=== PATIENT | male | born 1995 | race Caucasian/White ===

== ENCOUNTER 2023-07-20 12:53 | Emergency (ER) | payer OTHER, SELFPAY ==
[2023-07-20 12:54] VITALS: BP 178/97; PULSE 128; RESP 16; TEMP 35.3; O2SAT 97; BMI 39.6
[2023-07-20 12:56] VITALS: BP 178/97; PULSE 128; RESP 16; TEMP 35.3; O2SAT 97
[2023-07-20 12:58] VITALS: BP 178/97; PULSE 128; RESP 16; TEMP 35.3; O2SAT 97
--- NOTE | 2023-07-20 13:39 | CT_ITS ---
STUDY: CT ABDOMEN AND PELVIS WITHOUT CONTRAST REASON FOR EXAM: Male, 28 years old. Left testicular pain since last night. RADIATION DOSAGE (If Supplied By Facility): CTDIvol = ( 24.08 ) mGy, DLP = ( 1860.64 ) mGycm TECHNIQUE: Transaxial images were obtained from the dome of the diaphragm to the symphysis pubis without oral contrast, and without intravenous contrast. Sagittal and coronal images were reconstructed. Individualized dose optimization techniques were used for this CT. COMPARISON: None. FINDINGS: The visualized lung bases are unremarkable. The visualized portions of the heart are within normal limits. There is decreased attenuation of the liver consistent with steatosis. Normal gallbladder and extrahepatic biliary system. Normal spleen. Normal pancreas. Normal bilateral adrenal glands. Normal right kidney. Mild degree of left hydronephrosis due to a 3 mm calculus at the left ureterovesical junction as it enters the urinary bladder. Normal visualized stomach. Normal small intestine. Normal colon. The appendix is visualized and appears normal. Normal abdominal aorta. Normal inferior vena cava. Normal retroperitoneum. Normal urinary bladder. Normal abdominal wall. Normal osseous structures. CT/Abdomen/Pelvis without Cont IMPRESSION: Mild degree of left hydronephrosis due to a recently passed ureteral calculus just distal to the left ureterovesical junction. Fatty infiltration of the liver. Electronically Signed: Vega Humphrey MD at 14:26 EDT ,
[2023-07-20] MEDS: Ketorolac 30 MG/ML Syringe IV (13:53)
[2023-07-20 13:59] LABS: Absolute Lymphocyte Count 1.63 X10^3/uL (0.83-4.51); Absolute Neutrophil Count 9.8 X10^3/uL (2.0-7.7); Basophil# 0.02 X10^3/uL; Basophil% 0.2 % (0-1); Eosinophil# 0.05 X10^3/uL; Eosinophils% 0.4 % (0-5); Hemoglobin 14.3 g/dL (13.0-16.5); Lymphocyte # 1.63 X10^3/ul (0.83-4.51); Lymphocyte % 12.9 % (19-41); Mean Corp Hgb Conc 31.8 g/dL (32-36); Mean Corpuscular Hgb 24.7 pg (27.0-32.0); Mean Corpuscular Volume 77.6 fL (80-94); Mean Platelet Vol. 9.7 fl (6.2-12.0); Monocyte# 1.13 X10^3/uL; Monocyte% 8.9 % (0-10); NRBC Flagged by Analyzer 0 % (0-5); Neutrophil # 9.75 X10^3/uL (2.7-7.7); Neutrophil % 77.2 % (47-70); Platelet Count 490 K/mm3 (150-450); RBC Distribution Width CV 13.9 % (11.6-14.6); RBC Distribution Width SD 38.5 fl (35.1-43.9); White Blood Count 12.6 K/mm3 (4.4-11.0)
[2023-07-20 14:11] LABS: Anion Gap 8 (5-15); BUN 13 mg/dL (7-18); BUN/Creat Ratio 11.6 RATIO (10-20); Calcium,Total 9.3 mg/dL (8.5-10.1); Chloride 108 mmol/L (98-107); Creatinine, Serum 1.12 mg/dL (0.70-1.30); EST Glomerular Filtration Rate 82 mL/min (>60); Est Glom Filt Rate - Afr Amer 100 mL/min (>60); Estimated Creatinine Clearance 141.16 ml/min; Glucose 151 mg/dL (74-106); Potassium 3.8 mmol/L (3.5-5.1); Sodium Level 141 mmol/L (136-145)
[2023-07-20 14:27] LABS: Bacteria 0 SEEN /hpf (None Seen); Mucous, Urine 0 SEEN /hpf (<or=2+); Squamous Epithelial Cells - UA 0 SEEN /hpf (0-5); White Blood Cells 0 SEEN /hpf (0-5)
[2023-07-20 14:28] LABS: Color, Urine Yellow (Yellow); Glucose, Dipstick Normal (Normal); Ketone-Dipstick Negative (Negative); Leukocyte Esterase-Dipstick Negative /ul (Negative); Nitrite-Dipstick Negative (Negative); Occult Blood-Urine 25 /ul (Negative); Protein-Dipstick 15 mg/dl (Negative); Urine Bilirubin Dipstick Negative (Negative); Urine Clarity Clear (Clear); Urine Urobilinogen Normal (Normal)
[2023-07-20 14:36] LABS: Red Blood Cells-Urine 0-5 SEEN /hpf (0-5)
[2023-07-20 14:54] VITALS: BP 169/109; PULSE 97; RESP 18; TEMP 36.8; O2SAT 98
--- NOTE | 2023-07-20 15:55 | EDS_ITS ---
HPI History of Present Illness Chief Complaint: Male Pain/Injury Informant: patient Narrative Narrative: 28-year-old male presenting to the emergency room with left testicular pain. Patient states that last evening he got up to urinate and after doing so began to have discomfort of the left testicle. Was rather uncomfortable and made him walk around. That did not seem to make it better or worse. Then she was able to get to sleep and when he awoke felt little bit better but then his pain/discomfort returned. He notes that it seems to wax and wane and has some occasional nausea. He has never experienced this before. No dysuria or drainage from the penis. No trauma. He notes a inguinal hernia surgery as a child. No hematuria. Patient with no known prostate issues. [facility] Medical History Testicle pain Home Medications NK 07/20/23 [History Last Taken Unknown] Allergy/AdvReac Type Severity Reaction Status Date / Time No Known Allergies Allergy Verified 07/20/23 12:56 Social History Smoking Status: Unknown if ever smoked ROS ROS ED Constitutional Constitutional ED: Denies chills, fever(s) or weight loss Eyes Eyes: Denies change in vision or diplopia ENT ENT ED: Denies ear pain, rhinorrhea or sore throat Cardiovascular Cardiovascular: Denies chest pain, orthopnea, palpitations or racing heartbeat Respiratory/Chest Respiratory/Chest: Denies cough, dyspnea or orthopnea Gastrointestinal Gastrointestinal: Reports nausea; Denies abdominal pain, diarrhea or vomiting Genitourinary Genitourinary ED: Reports other Details: Left testicular pain ; Denies dysuria, hematuria or urinary frequency Musculoskeletal Musculoskeletal: Denies arthralgias, back pain or myalgias Integumentary Denies abscess or rash Neurologic Neurologic: Denies headache(s) or weakness Psychiatric Psychiatric: Denies anxiety, depression, suicidal ideation or suicidal thoughts Endocrine Endocrinology: Denies polydipsia, polyphagia or polyuria Allergic/Immunologic Allergic/Immunologic ED: Denies mouth swelling, tongue swelling or urticaria EXAM Physical Exam Const Vital Signs: 07/20/23 12:54 07/20/23 12:56 07/20/23 12:58 Temperature 95.6 F L 95.6 F L 95.6 F L Temperature Source Temporal Temporal Temporal Pulse Rate 128 H 128 H 128 H Respiratory Rate 16 16 16 Blood Pressure 178/97 H 178/97 H 178/97 H Blood Pressure Mean 124 124 124 Pulse Ox 97 97 97 Oxygen Delivery Method Room Air Room Air Room Air 07/20/23 14:54 Temperature 98.2 F Temperature Source Pulse Rate 97 Respiratory Rate 18 Blood Pressure 169/109 H Blood Pressure Mean 129 Pulse Ox 98 Oxygen Delivery Method Positive well nourished and well developed General Appearance ED: well developed HEENT Reports normocephalic, head/scalp atraumatic and moist mucous membranes Eyes PERRL and EOMs intact bilaterally Neck no lymphadenopathy, supple and no JVD Resp normal respiratory effort and clear to auscultation bilaterally Cardio regular rate, regular rhythm and no murmurs GI normal to inspection, nondistended, normoactive bowel sounds and non-tender Palpation: soft Narrative: Testicular exam shows no significant tenderness of the testicle or the epididymis. Normal testicular lie. I do not palpate any masses. No hernia on Valsalva or palpation. No penile drainage. Cremasteric reflex intact bilaterally Back/Spine no CVA tenderness and normal ROM Extremity normal to inspection General Extremety ED: Negative for edema General Extremity: Negative for edema Neuro oriented x3 and CN's II-XII intact bilaterally Sensorium / Orientation: alert Motor Exam: strength 5/5 throughout Psych mental status grossly normal Mood & Affect: Negative for depressed or tearful Skin no rashes or lesions noted and no wounds MDM MDM MDM Narrative Medical decision making narrative: White count 12.6 with hemoglobin 14.3 platelet count of 490. Creatinine 1.[address] of the abdomen pelvis demonstrates some mild hydronephrosis of the left kidney. Hydroureter noted. There is a approximately 3-1/2 mm stone in the bladder suggestive that it recently passed. This most likely is a source of the patient's testicular pain. I talked him about obtaining a testicular ultrasound. Using shared decision making we will defer this at this time. His exam does not support torsion epididymitis or orchitis. He is comfortable returning if any concerns. History & Record Review Discussion w/independent historian: Patient and Family Lab Data Attestation: I reviewed the patient's lab results. Labs: Laboratory Results - last 24 hr 07/20/23 07/20/23 13:45 14:15 WBC 12.6 H RBC 5.80 Hgb 14.3 Hct 45.0 MCV 77.6 L MCH 24.7 L MCHC 31.8 L RDW Std Deviation 38.5 RDW Coeff of Grady 13.9 Plt Count 490 H MPV 9.7 Immature Gran % (Auto) 0.400 Neut % (Auto) 77.2 H Lymph % (Auto) 12.9 L Butler % (Auto) 8.9 Eos % (Auto) 0.4 Baso % (Auto) 0.2 Absolute Neuts (auto) 9.8 H Absolute Lymphs (auto) 1.63 Nucleated RBC % 0 Sodium 141 Potassium 3.8 Chloride 108 H Carbon Dioxide 25.0 Anion Gap 8 BUN 13 Creatinine 1.12 Estim Creat Clear Calc 141.16 Est GFR (MDRD) Af Amer 100 Est GFR (MDRD) Non-Af 82 BUN/Creatinine Ratio 11.6 Glucose 151 H Calcium 9.3 Urine Color Yellow Urine Clarity Clear Urine pH 6.0 Ur Specific [place] 1.020 Urine Protein 15 H Urine Glucose (UA) Normal Urine Ketones Negative Urine Occult Blood 25 H Urine Nitrite Negative Urine Bilirubin Negative Urine Urobilinogen Normal Ur Leukocyte Esterase Negative Urine RBC 0-5 SEEN Urine WBC 0 SEEN Ur Squamous Epith Cells 0 SEEN Urine Bacteria 0 SEEN Urine Mucus 0 SEEN Radiography Diagnostic Testing: Clinical Impression(s) from Imaging Studies Abdomen/Pelvis CT 07/20/23 13:39 IMPRESSION: Mild degree of left hydronephrosis due to a recently passed ureteral calculus just distal to the left ureterovesical junction. Fatty infiltration of the liver. Electronically Signed: Vega Humphrey MD at 14:26 EDT , Discharge Plan Triage Chief Complaint: Male Pain/Injury ED Provider: Daniel Lemos Dx/Rx/DC Orders Clinical Impression: Kidney stone, Left testicular pain Instructions: ED Kidney Stone, Passed Prescriptions: No Action NK Primary Care Provider: Care Physician,No Primary Referrals: Lele Swartz MD [Med Staff - Active Staff] - As Needed Care Physician,No Primary [Primary Care Provider] - Activity Restrictions/Additional Instructions: Please return to the emergency department if any concerns or pain is continuing. Disposition Disposition: Home, Self Care Discharge Date/Time: 07/20/23 14:59
== END 2023-07-20 14:59 | disposition home or self-care (01) ==
PROVIDERS: Emergency Provider Emergency Medicine; Visit Provider Emergency Medicine
DX: N50.812 Left testicular pain (principal); N13.30 Unspecified hydronephrosis
CPT/HCPCS: 74176; 80048; 81001; 85025; 96374; 99282; J7030; A4216

== ENCOUNTER 2024-05-22 08:22 | Emergency (ER) | payer BC, SELFPAY ==
[2024-05-22 08:22] VITALS: BP 151/100; PULSE 95; RESP 16; TEMP 35.7; O2SAT 98
--- NOTE | 2024-05-22 08:32 | ED.VIS.LOWEX ---
HPI History of Present Illness Chief Complaint: Lower Extremity Injury Detail of Chief Complaint: Injury to left foot Informant: patient Narrative Narrative: Patient presents to the emergency department with an injury to his left foot that occurred yesterday. Patient states that he was coming down the steps carrying something and he heard a pop in his left foot causing pain. He did not fall. He complains of swelling and pain with walking. He is able to bear some weight. [facility] Medical History Testicle pain Home Medications ?Medication ?Instructions ?Recorded ?Last Taken ?Type NK 07/20/23 Unknown History Allergy/AdvReac Type Severity Reaction Status Date / Time No Known Allergies Allergy Verified 07/20/23 12:56 Social History Smoking Status: Unknown if ever smoked ROS ROS ED Review of Systems ROS Unobtainable: other Constitutional Constitutional ED: Reports lethargy; Denies chills, fever(s), sweats or weight loss Eyes Eyes: Denies blurry vision, change in vision or diplopia ENT ENT ED: Denies rhinorrhea or sore throat Cardiovascular Cardiovascular: Denies chest pain, orthopnea or racing heartbeat Respiratory/Chest Respiratory/Chest: Denies cough, dyspnea, dyspnea on exertion, orthopnea or sputum Gastrointestinal Gastrointestinal: Denies abdominal pain, diarrhea, nausea or vomiting Genitourinary Genitourinary ED: Denies dysuria, hematuria or urinary frequency Musculoskeletal Musculoskeletal: Reports other Details: Left foot pain/injury ; Denies arthralgias, back pain, myalgias or neck pain Integumentary Denies abscess, Abrasions or rash Neurologic Neurologic: Denies headache(s) or weakness Psychiatric Psychiatric: Denies anxiety, depression or suicidal thoughts Endocrine Endocrinology: Denies polydipsia, polyphagia or polyuria Hematologic/Lymphatic Hematologic/Lymphatic: Denies easy bleeding, easy bruising or lymphadenopathy Allergic/Immunologic Allergic/Immunologic ED: Denies mouth swelling, tongue swelling or urticaria EXAM Physical Exam Const Vital Signs: 05/22/24 08:22 Temperature 96.3 F L Temperature Source Temporal Pulse Rate 95 Respiratory Rate 16 Blood Pressure 151/100 H Blood Pressure Mean 117 Pulse Ox 98 Oxygen Delivery Method Room Air Positive well nourished and well developed General Appearance ED: well developed and NAD HEENT Reports TM's clear and moist mucous membranes normocephalic and atraumatic; Negative for trauma or tenderness Tympanic Membrane ED: Yes TM's clear Eyes PERRL and EOMs intact bilaterally General Eye ED: Negative for pale conjunctiva or scleral icterus Neck no lymphadenopathy, supple and no JVD General: Negative for tenderness Chest Wall inspection of chest normal and palpation of chest normal Chest: Negative for tenderness Resp normal respiratory effort and clear to auscultation bilaterally Effort and Inspection: Negative for respiratory distress or pain with movement Auscultation: Negative for rhonchi, wheezes or diminished lung sounds Cardio regular rate, regular rhythm, S1 normal heart sound, S2 normal heart sound and no murmurs Peripheral Pulses: pulses 2+ throughout GI normal to inspection, nondistended, normoactive bowel sounds, soft to palpation, non-tender, non-distended and no masses Back/Spine no CVA tenderness and no thoracic nor lumbar tenderness Extremity Extremity Narrative: Left lower extremity-patient has mild diffuse tenderness over the dorsum of the left foot. Patient with tenderness palpation over the plantar aspect of the midfoot. Mild diffuse soft tissue swelling over the dorsum of the foot. No ecchymosis or bruising noted. No pain at the base of the fifth metatarsal. No significant tenderness over the medial or lateral malleolus. No pain at the proximal fibular head. Neurovascularly intact distally. General Extremety ED: Negative for edema General Extremity: Negative for edema Neuro oriented x3, CN's II-XII intact bilaterally, no sensory deficits noted and gait normal Sensorium / Orientation: awake, alert, oriented to person, oriented to place and oriented to time Motor Exam: strength 5/5 throughout and strength abnormal Psych mental status grossly normal Skin no rashes or lesions noted and no wounds MDM MDM MDM Narrative Medical decision making narrative: Patient presents with injury to the left foot. Able to bear some weight. X-rays of the left foot obtained interpreted by radiology as no evidence of fracture or dislocation. I am in agreement. Patient was given an Emmanuel wrap and crutches. He is instructed to ice and elevate extremity and use ibuprofen or Tylenol for discomfort. Patient will be referred to podiatry for follow-up within the next 7 to 10 days if persistent pain or condition should worsen anyway. Radiography Diagnostic Testing: Clinical Impression(s) from Imaging Studies Foot X-Ray 05/22/24 08:35 IMPRESSION: Normal x-ray examination of the foot. Electronically Signed: Vega Humphrey MD at 8:58 EST , Three-view x-rays of the left foot obtained interpreted by myself as no evidence of fracture or dislocation. Radiology in agreement. Discharge Plan Triage Chief Complaint: Lower Extremity Injury ED Provider: Jose F Nettles Dx/Rx/DC Orders Clinical Impression: Sprain of foot, left Instructions: ED Foot Sprain Prescriptions: No Action NK Primary Care Provider: Care Physician,No Primary Referrals: Nick Garnett DPM [Med Staff - Active Staff] - 5-7 Days Care Physician,No Primary [Primary Care Provider] - Activity Restrictions/Additional Instructions: Use ibuprofen or Tylenol for discomfort. Print Language: Dominican Disposition Disposition: Home, Self Care
--- NOTE | 2024-05-22 08:35 | RAD_ITS ---
STUDY: X-RAY - LEFT FOOT CLINICAL: Male, 29 years old. Injury TECHNIQUE: 3 view(s) of the foot. COMPARISON: None. FINDINGS: Normal talus, calcaneus, and tarsal bones. Normal visualized subtalar, talonavicular, calcaneocuboid, tarsal and tarsometatarsal articulations. Normal metatarsi. Normal metatarsophalangeal joint of the great toe. Normal tibial and fibular sesamoid bones. Normal interphalangeal joint of the great toe. Normal phalanges of the great toe. Normal second through fifth metatarsophalangeal joints. Normal interphalangeal joints and phalanges of the lesser toes. The soft tissue structures are unremarkable. RAD/Foot min 3 Views IMPRESSION: Normal x-ray examination of the foot. Electronically Signed: Vega Humphrey MD at 8:58 EST ,
[2024-05-22 09:27] VITALS: BP 124/63; PULSE 72; RESP 15; TEMP 36.4; O2SAT 99
== END 2024-05-22 09:28 | disposition home or self-care (01) ==
PROVIDERS: Emergency Provider Emergency Medicine; Visit Provider Emergency Medicine
DX: S93.602A Unspecified sprain of left foot, initial encounter (principal); X58.XXXA Exposure to other specified factors, initial encounter; Y93.89 Activity, other specified
CPT/HCPCS: 73630; 99283